=== PATIENT | female | born 1975 | race Caucasian/White ===

== ENCOUNTER 2021-10-06 23:43 | Emergency (ER) | payer OTHER ==
[~2021-10-06] VITALS: Ht 154.9 cm; Wt 77.1 kg
[2021-10-07] MEDS ORDERED: PRED20 PO (01:35)
== END 2021-10-07 02:06 | disposition home or self-care (01) ==
LOC: ER 23:43
DX: L50.9 Urticaria, unspecified (principal)
CPT/HCPCS: 96374; 96375; 99283-25; J2930; J7030